=== PATIENT | male | born 1975 | race Caucasian/White ===

== ENCOUNTER 2024-01-08 11:16 | Emergency (ER) | payer BC, SELFPAY ==
[2024-01-08 11:22] VITALS: BP 124/75; PULSE 54; RESP 18; TEMP 35.8; O2SAT 96; BMI 33.5
--- NOTE | 2024-01-08 11:40 | CRLHL7_ITS ---
For Patients: As a result of the Century Cures Act, medical imaging exams and procedure reports are released immediately into your electronic medical record. You may view this report before your referring provider. If you have questions, please contact your health care provider. INDICATION: LEFT FLANK PAIN AND PERIUMBILICAL PAIN TECHNIQUE: CT abdomen and pelvis acquired with 118 cc Isovue 370 IV contrast. COMPARISON: None. FINDINGS: Lower chest: The visualized lower lungs are aerated. No pleural or pericardial effusion. ABDOMEN: Liver: Likely diffuse hepatic steatosis. Gallbladder and biliary: Normal gallbladder without radiopaque stone. Normal caliber bile ducts. Spleen: Calcified granulomas. Pancreas: Normal enhancement without peripancreatic inflammatory changes or ductal dilatation. Adrenal glands: Normal adrenal glands. Kidneys and ureters: Mild left-sided hydroureteronephrosis with associated delayed nephrogram secondary to a 2 millimeter stone within the left UVJ. Subcentimeter hypodensities are too small to characterize however statistically represent cysts. Normal enhancement of the right kidney. No right-sided hydroureteronephrosis GI tract: The stomach is relatively decompressed. Normal caliber small and large bowel loops. Normal appendix. Vascular structures: Normal caliber abdominal aorta. Lymph nodes: No lymphadenopathy in the abdomen or pelvis by size criteria. Peritoneum: No free air, free fluid, or focal drainable fluid collection. PELVIS: Genitourinary system: Urinary bladder is relatively decompressed. SKELETAL STRUCTURES AND SOFT TISSUES: No suspicious lytic or blastic lesions. IMPRESSION: Mild left-sided hydroureteronephrosis with associated delayed nephrogram secondary to a 2 millimeter stone within the left UVJ. Please note that all CT scans at this facility use dose modulation, iterative reconstruction, and/or weight-based dosing when appropriate to reduce radiation dose to as low as reasonably achievable. Dictated by Popeye Castillo MD @ 01/08/2024 12:21:34 PM (Electronically Signed)
[2024-01-08 11:53] LABS: Appearance Urine Clear (Clear); Bilirubin Urine Negative (Negative); Blood Urine Trace-lysed (Negative); Color Urine Yellow (Yellow); Glucose Urine Negative (Negative); Ketones Urine 1+ (Negative); Leukocyte Esterase Urine Negative (Negative); Nitrite Urine Negative (Negative); Protein Urine 1+ (Negative); Specific Gravity Urine >= 1.030 (1.000-1.030); Urobilinogen Urine 0.2 (0.2-1.0); pH Urine 5.5 (5.0-8.5)
[2024-01-08] MEDS: KETOROLAC 15 MG/ML inj IVP (11:54)
[2024-01-08 11:58] LABS: Basophils Absolute Auto 0.04 K/uL (0.00-0.30); Basophils Percent Auto 0.4 % (0.0-3.0); Eosinophils Absolute Auto 0.02 K/uL (0.00-0.50); Eosinophils Percent Auto 0.2 % (0.0-7.0); Hematocrit 46.7 % (37.0-53.0); Hemoglobin* 16.7 gm/dL (13.5-17.5); Immature Granulocytes Abs Auto 0.04 K/uL (0.00-0.30); Immature Granulocytes Pct Auto 0.4 %; Lymphocytes Percent Auto 10.7 % (20-44); Mean Corpuscular HGB Conc 36 gm/dL (32-36); Mean Corpuscular Hemoglobin 32 pg (26-34); Mean Corpuscular Volume 89 fL (80-100); Monocytes Percent Auto 3.6 % (0.0-11.0); Neutrophils Percent Auto 84.7 % (42.0-72.0); Platelet Count* 217 K/uL (140-440); RDW Coefficient of Variation % 12.8 % (11.5-15.5); Red Blood Count 5.26 m/uL (4.30-5.90)
--- NOTE | 2024-01-08 11:59 | ED_ITS ---
HPI - Abdominal Pain General Date Seen: 01/08/24 Chief Complaint: Abdominal Pain Stated Complaint: back/abd. pain started this am Time Seen by Provider: 01/08/24 11:30 Source: patient Mode of arrival: ambulatory Limitations: no limitations History of Present Illness HPI narrative: Patient is a 48-year-old male presenting for low back pain and periumbilical pain. Patient states about 07:00 he was taking the garbage out when he started having back pain. About an hour later he started having periumbilical abdominal pain. Pain is mostly in his left flank at this time but he does state it is severe. States initially it was sharp in now seems to be more dull in nature. Has not taken anything yet for pain. Denies having pain like this before. No previous abdominal surgeries. Has had a previous spleen laceration that was treated medically. Has never had a kidney stone. Denies any other back issues in the past. Has not had a bowel movement or urinated today but did both yeste rday and they were normal at that time. Denies fevers, chills, chest pain, shortness of breath, headache, vision changes, weakness. No other concerns noted at this time Related Data Previous Rx's ?Medication ?Instructions ?Recorded ketorolac 10 mg tablet 10 mg PO Q6H PRN pain #20 tabs 01/08/24 tamsulosin 0.4 mg capsule 0.4 mg PO DAILY #7 caps 01/08/24 Allergies Allergy/AdvReac Type Severity Reaction Status Date / Time No Known Drug Allergies Allergy Verified 01/08/24 11:24 Review of Systems Status of ROS Reports: 10 or more systems reviewed and unremarkable except as noted in History and below Exam Narrative: Exam Narrative: Const: Well-nourished, Well-developed, in my distress Eyes: PERRL, no conjunctival injection, and symmetrical lids HENT: Atraumatic external nose and ears. Moist mucous membranes. Neck: Symmetric, trachea midline, No thyromegaly. CVS: RRR, No murmurs or gallops. Peripheral pulses 2+ and equal in all extremities RESP: Unlabored respiratory effort. Clear to auscultation bilaterally. GI: Mild periumbilical tenderness, Nondistended, No rebound or guarding. Mild left CVA tenderness MSK:Extremities w/o deformity, Normal Active ROM Skin: Warm, Dry. No rashes or lesions. Neuro: Normal Muscle tone, No focal neurological deficits. Psych: Awake, Alert, & Oriented x3. Appropriate mood and affect. Const: Vital Signs, click to edit/add: Vital Signs - 24 hr 01/08/24 11:22 Temperature 96.4 F L Pulse Rate [Right Pulse Oximeter] 54 L Respiratory Rate 18 Blood Pressure [Ri ght Upper Arm] 124/75 Pulse Oximetry 96 Oxygen Delivery Me thod Room Air Course Vital Signs Vital signs: Initial Vital Signs Temperature 96.4 F L 01/08/24 11:22 Temperature Source Temporal Artery Scan 01/08/24 11:22 Pulse Rate 54 L 01/08/24 11:22 Pulse Rhythm Regular 01/08/24 11:22 Pulse Strength 3+ Normal 01/08/24 11:22 Respiratory Rate 18 01/08/24 11:22 Blood Pressure 124/75 01/08/24 11:22 Blood Pressure Mean 91 01/08/24 11:22 Blood Pressure Position Sitting 01/08/24 11:22 Pulse Oximetry 96 01/08/24 11:22 Oxygen Delivery Method Room Air 01/08/24 11:22 Vital Signs Temperature 96.4 F L 01/08/24 11:22 Pulse Rate 54 L 01/08/24 11:22 Respiratory Rate 18 01/08/24 11:22 Blood Pressure 124/75 01/08/24 11:22 Pulse Oximetry 96 01/08/24 11:22 Oxygen Delivery Method Room Air 01/08/24 11:22 Temperature 96.4 F L 01/08/24 11:22 Pulse Rate 54 L 01/08/24 11:22 Respiratory Rate 18 01/08/24 11:22 Blood Pressure 124/75 01/08/24 11:22 Pulse Oximetry 96 01/08/24 11:22 Oxygen Delivery Method Room Air 01/08/24 11:22 Medications Administered Medications: Discontinued Medications Generic Name Dose Route Start Last Admin Trade Name Freq PRN Reason Stop Dose Admin Ketorolac Tromethamine 15 mg 01/08/24 11:40 01/08/24 11:54 Ketorolac 15 Mg/Ml Inj IVP 01/08/24 11:41 15 mg ONCE ONE Administration MDM - Abdominal Pain MDM Narrative Medical decision making narrative: Patient is a 48-year-old male presenting for left flank pain and periumbilical abdominal pain. Differential this time include is pancreatitis, nephrolithiasis, appendicitis, small-bowel obstruction seems unlikely with normal previous abdominal surgeries. AAA seems unlikely considering his age. Mesenteric ischemia is considered but also seems unlikely at this time. Will do a CBC, CMP, urinalysis, CT scan of the abdomen pelvis. Toradol given for pain. Patient is feeling better with Toradol. Lab work shows no concerning findings. No signs of UTI. CT scan returned showing a 2 mm kidney stone with some hydronephrosis. This is consistent with his pain. Considering this is likely causing all of his symptoms patient will be discharged home with Toradol and Flomax. He is agreeable to this plan peer Lab Data Labs: Lab Results 01/08/24 01/08/24 Range/Units 11:31 11:45 WBC 10.70 (4.50-11.00) K/uL RBC 5.26 (4.30-5.90) m/uL Hgb 16.7 (13.5-17.5) gm/dL Hct 46.7 (37.0-53.0) % MCV 89 (80-100) fL MCH 32 (26-34) pg MCHC 36 (32-36) gm/dL RDW Coeff of Becki 12.8 (11.5-15.5) % Plt Count 217 (140-440) K/uL Neut % (Auto) 84.7 H (42.0-72.0) % Lymph % (Auto) 10.7 L (20-44) % [place] % (Auto) 3.6 (0.0-11.0) % Eos % (Auto) 0.2 (0.0-7.0) % Baso % (Auto) 0.4 (0.0-3.0) % Neut # (Auto) 9.10 H (1.7-7.0) K/uL Lymph # (Auto) 1.10 (0.90-2.90) K/uL [place] # (Auto) 0.40 (0.00-0.90) K/UL Eos # (Auto) 0.02 (0.00-0.50) K/uL Baso # (Auto) 0.04 (0.00-0.30) K/uL Abs Immat Gran (auto) 0.04 (0.00-0.30) K/uL Imm/Tot Granulo (auto) 0.4 % Sodium 139 (135-149) mmol/L Potassium 4.1 (3.6-5.1) mmol/L Chloride 109 (96-114) mmol/L Carbon Dioxide 19 L (20-32) mmol/L Anion Gap 11 (7-15) mEq/L BUN 31 H (5-24) mg/dL Creatinine 1.2 (0.5-1.5) mg/dL Estimated Creat Clear 81.05 Estimated GFR 75 ml/min Glucose 154 H (60-115) mg/dL Calcium 9.2 (8.4-10.6) mg/dL Magnesium 2.3 (1.5-2.6) mg/dL Total Bilirubin 0.9 (0.1-1.5) mg/dL AST 26 (12-35) U/L ALT 48 (4-50) U/L Alkaline Phosphatase 60 (40-150) U/L Total Protein 7.4 (6.0-8.3) g/dL Albumin 4.8 (3.3-5.0) g/dL Lipase 65 (23-300) U/L Urine Color Yellow (Yellow) Urine Appearance Clear (Clear) Urine pH 5.5 (5.0-8.5) Ur Specific [place] >= 1.030 (1.000-1.030) Urine Protein 1+ A (Negative) Urine Glucose (UA) Negative (Negative) Urine Ketones 1+ A (Negative) Urine Blood Trace-lysed A (Negative) Urine Nitrite Negative (Negative) Urine Bilirubin Negative (Negative) Urine Urobilinogen 0.2 (0.2-1.0) Ur Leukocyte Esterase Negative (Negative) Urine RBC 0-2 (0-2) Urine WBC 0-2 (0-5) Ur Squamous Epith Cells Few (None-Few) Amorphous Sediment Few A (None) Urine Bacteria Moderate A (None) Urine Mucus Few A (None) Imaging Data CT scan abdomen/pelvis: Attestation: I have reviewed the pertinent imaging results. Radiologist's impression: Mild left-sided hydroureteronephrosis with associated delayed nephrogram secondary to a 2 millimeter stone within the left UVJ. Please note that all CT scans at this facility use dose modulation, iterative reconstruction, and/or weight-based dosing when appropriate to reduce radiation dose to as low as reasonably achievable. Dictated by Popeye Castillo MD @ 01/08/2024 12:21:34 PM Discharge Plan Discharge Clinical Impression: Left nephrolithiasis Patient Disposition: Home, Self-Care Condition: Improved Instructions: Kidney Stones (ED), How to Strain Your Urine (ED) Additional Instructions: Take Tylenol in the Toradol as needed for pain. Do not take ibuprofen or other NSAIDs at the same time your taking Toradol. Use the Flomax as directed. Return to emergency department for new worsening symptoms. The stone is relatively small and should pass on its own. Prescriptions: New ketorolac 10 mg tablet 10 mg PO Q6H PRN (Reason: pain) Qty: 20 0RF Rx Instructions: maximum total duration of 5 days from all oral, intranasal, or parenteral formulations tamsulosin 0.4 mg capsule 0.4 mg PO DAILY Qty: 7 0RF Follow Up/Referrals: Provider,Not a Local [Primary Care Provider] - Stand Alone Forms: [facility] Info Instructions
[2024-01-08 12:02] LABS: Slide Review Reflex No
[2024-01-08 12:04] LABS: Chloride* 109 mmol/L (96-114)
[2024-01-08 12:05] LABS: Albumin* 4.8 g/dL (3.3-5.0); Sodium* 139 mmol/L (135-149)
[2024-01-08 12:06] LABS: Potassium* 4.1 mmol/L (3.6-5.1)
[2024-01-08 12:07] LABS: Amorphous Sediment Urine Few; Bacteria Urine Moderate; RBC Urine 0-2 (0-2); Squamous Epithelial Cell Urine Few (None-Few); WBC Urine 0-2 (0-5)
[2024-01-08 12:08] LABS: Mucus Urine Few
[2024-01-08 12:08] LABS: Alanine Aminotransferase* 48 U/L (4-50); Alkaline Phosphatase* 60 U/L (40-150); Anion Gap 11 mEq/L (7-15); Aspartate Amino Transferase* 26 U/L (12-35); Bilirubin Total* 0.9 mg/dL (0.1-1.5); Blood Urea Nitrogen* 31 mg/dL (5-24); Calcium* 9.2 mg/dL (8.4-10.6); Carbon Dioxide* 19 mmol/L (20-32); Creatinine* 1.2 mg/dL (0.5-1.5); Est. Creatinine Clearance* 81.05; Estimated Glomerular Filt Rate 75 ml/min; Glucose* 154 mg/dL (60-115); Lipase* 65 U/L (23-300); Total Protein* 7.4 g/dL (6.0-8.3)
[2024-01-08 12:09] LABS: Magnesium* 2.3 mg/dL (1.5-2.6)
== END 2024-01-08 13:04 | disposition home or self-care (01) ==
PROVIDERS: Emergency Provider Student in an Organized Health Care Education/Training Program
DX: N20.0 Calculus of kidney (principal)
CPT/HCPCS: 36415; 74177; 80053; 81001; 83690; 83735; 85025; 87086; 96374; 99283; 99284; J1885; Q9967